=== PATIENT | female | born 1975 ===

== ENCOUNTER 2017-12-26 08:53 | Emergency (ER) | payer MEDICAID, OTHER ==
[2017-12-26 09:07] VITALS: BMI 26.9
[2017-12-26] MEDS ORDERED: Oxycodone/Acetaminophen 5/325 mg Tab PO STA (09:34)
[2017-12-26] MEDS ORDERED: Oxycodone/Acetaminophen 5/325 mg Tab ONE (09:40)
--- NOTE | 2017-12-26 09:43 | C.PDOC ---
History Of Present Illness 42 y/o female presents to ED with c/o left shoulder pain radiating to back for 1 week after she slipped and fell on floor. Patient was seen at [facility] and followed up with Dr. Coe, was given Rx for Baclofen and requested patient to have outpatient MRI. Patient states she cannot get MRI because has not been approved by [facility]. Patient reports pain worse today prompting visit to ED and denies new trauma, bowel/bladder incontinence, change in sensation, chest pain or any other complaints at this time. Chief Complaint (Nursing): Back Pain History Per: Patient History/Exam Limitations: no limitations Onset/Duration Of Symptoms: Days Current Symptoms Are (Timing): Still Present Quality Of Discomfort: "Pain" Past Medical History Reviewed: Historical Data, Nursing Documentation, Vital Signs Vital Signs: Last Vital Signs Temp 98.9 F 12/26/17 09:07 Pulse 88 12/26/17 09:07 Resp 17 12/26/17 09:07 BP 139/69 12/26/17 09:07 Pulse Ox 97 12/26/17 09:07 - Medical History PMH: No Chronic Diseases Surgical History: Cholecystectomy Family History: States: No Known Family Hx - Social History Hx Tobacco Use: No Hx Alcohol Use: Yes Hx Substance Use: No - Immunization History Hx Tetanus Toxoid Vaccination: No Hx Influenza Vaccination: No Hx Pneumococcal Vaccination: No Review Of Systems Cardiovascular: Negative for: Chest Pain Genitourinary: Negative for: Dysuria, Incontinence Musculoskeletal: Positive for: Shoulder Pain, Back Pain. Negative for: Neck Pain Skin: Negative for: Rash Neurological: Negative for: Weakness Physical Exam - Physical Exam Appears: Non-toxic, No Acute Distress Skin: Warm, Dry, No Rash Head: Atraumatic, Normacephalic Eye(s): bilateral: Normal Inspection Oral Mucosa: Moist Neck: Normal ROM, Supple Cardiovascular: Rhythm Regular Respiratory: Normal Breath Sounds, No Rales, No Rhonchi, No Wheezing Back: Other (Diffuse back tenderness) Extremity: Tenderness (bilateral shoulder), Capillary Refill (<2 seconds), No Deformity Neurological/Psych: Oriented x3, Normal Speech, Normal Motor, Normal Sensation ED Course And Treatment - Laboratory Results Result Diagrams: 12/26/17 11:14 12/26/17 11:14 O2 Sat by Pulse Oximetry: 97 (RA) Pulse Ox Interpretation: Normal Progress Note: Blood work ordered. Percocet administered. On re evaluation patient pain improved and agrees to be discharged with follow up to PMD in 1-2 days. Disposition - Disposition Referrals: Ector Coe MD [Staff Provider] - Disposition: HOME/ ROUTINE Disposition Time: 12:15 Condition: STABLE Additional Instructions: Follow up with your PMD, try to do MRI [facility]. Return to ED if feel worse. Prescriptions: Lidocaine 5% [Lidoderm] 1 patch TP DAILY #30 patch Famotidine [Pepcid] 20 mg PO BID #20 tab Ketorolac Tromethamine [Toradol] 10 mg PO TID #30 tab Instructions: Upper Back Pain (DC) Forms: [employer] (Thai) - Clinical Impression Clinical Impression: Thoracic back pain - PA / [employer] MANAGER / Resident Statement / has reviewed & agrees with the documentation as recorded. - Scribe Statement The provider has reviewed the documentation as recorded by the Pauletteibmiriam Cadet All medical record entries made by the Scribe were at my direction and personally dictated by me. I have reviewed the chart and agree that the record accurately reflects my personal performance of the history, physical exam, medical decision making, and the department course for this patient. I have also personally directed, reviewed, and agree with the discharge instructions and disposition.
[2017-12-26 11:26] LABS: BASO # 0.1 K/uL (0.0-0.2); BASO % 1.1 % (0.0-2.0); EOS # 0.2 K/uL (0.0-0.7); EOS % 2.5 % (0.0-4.0); HEMOGLOBIN 13.2 g/dL (11.0-16.0); LYMPH # 1.9 K/uL (1.0-4.3); LYMPH % 29.8 % (20.0-40.0); MEAN CORPUSCULAR HEMOGLOBIN 28.1 pg (27.0-31.0); MEAN CORPUSCULAR HGB CONC 33.6 g/dL (33.0-37.0); MEAN PLATELET VOLUME 9.3 fL (7.2-11.7); MONO # 0.5 K/uL (0.0-0.8); MONO % 8.6 % (0.0-10.0); NEUT # 3.6 K/uL (1.8-7.0); RBC 4.68 Mil/uL (3.80-5.20); WHITE BLOOD COUNT 6.2 K/uL (4.8-10.8)
[2017-12-26 11:29] LABS: PARTIAL THROMBOPLASTIN TIME 36 SECONDS (21-34); PROTHROMBIN TIME 11.2 SECONDS (9.7-12.2)
[2017-12-26 11:33] LABS: MEAN CELL VOLUME 83.6 fL (81.0-99.0)
[2017-12-26 11:36] LABS: ALB/GLOB RATIO 1.2 (1.0-2.1); ALBUMIN 4.2 g/dL (3.5-5.0); ALT/SGPT 24 U/L (9-52); AST/SGOT 21 U/L (14-36); BLOOD UREA NITROGEN 19 mg/dL (7-17); CALCIUM 9.2 mg/dl (8.6-10.4); GFR NON-AFRICAN AMERICAN > 60
[2017-12-26 11:47] LABS: D DIMER < 200 ng/mlDDU (0-243)
[2017-12-26] MEDS ORDERED: Lidocaine 5% Patch TD STA (11:57)
[2017-12-26 12:03] VITALS: BP 115/81; PULSE 60; RESP 16; TEMP 98
[2017-12-26] MEDS ORDERED: Lidocaine 5% Patch TD ONE (12:05)
[2017-12-26 12:15] VITALS: O2SAT 97
== END 2017-12-26 12:28 | disposition home or self-care (01) ==
LOC: C.ER 08:53
DX: M54.6 Pain in thoracic spine (principal); W01.0XXA Fall on same level from slipping, tripping and stumbling without subsequent striking against object, initial encounter
CPT/HCPCS: 80053; 85025; 85378; 85610; 85730; 96374; 99284; J1885